=== PATIENT | female | born 2000 | race Two or more races ===

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

== ENCOUNTER → 2022-04-26 10:03 | Outpatient (CLI) | payer OTHER | END | disposition home or self-care (01) | LOC: LAB 10:03 | PROVIDERS: ATTEND Pediatrics | DX: E55.9 Vitamin D deficiency, unspecified (principal); D64.9 Anemia, unspecified; E03.9 Hypothyroidism, unspecified ==

== ENCOUNTER 2024-11-16 11:16 | Outpatient (CLI) | payer OTHER ==
[2024-11-16 12:44] LABS: URINE APPEARANCE Clear; URINE BILIRRUBIN Negative (NEGATIVE); URINE BLOOD Negative; URINE COLOR Yellow; URINE GLUCOSE Negative (NEGATIVE); URINE KETONE Negative (NEGATIVE); URINE LEUKOCYTE Negative; URINE NITRATE Negative; URINE PROTEIN Negative (NEGATIVE); URINE UROBILINOGEN 0.2 E.U./dl
[2024-11-16 12:48] LABS: URINE BACTERIA 5375.7 uL (0.0-1933); URINE EPITHELIAL CELLS 21.2 uL (0.0-38.8); URINE RBC 25.3 uL (0.0-20.8); URINE WBC 73.2 uL (0.0-23.2)
[2024-11-16 12:48] LABS: BASO % 0.7 % (0.1-1.2); EOS # 0.03 (0.04-0.54); EOS % 0.5 % (0.7-7.0); LYMPH # 2.15 (1.18-3.74); LYMPH % 38.8 % (19.3-53.1); MEAN PLATELET VOLUME 10.00 fl (9.4-12.4); MONO # 0.52 (0.24-0.82); MONO % 9.4 % (4.7-12.5); NEUT # 2.79 (1.56-6.13); NEUT % 50.4 % (34.0-71.1); RED CELL DISTRIBUTION WIDTH 11.9 % (11.6-14.4)
[2024-11-16 13:26] LABS: ALT/SGPT 29.0 U/L (12-78); AST/SGOT 13.0 U/L (15-37); BILIRUBIN TOTAL 0.45 mg/dL (0.3-1.2); BUN CREA RATIO 16.0 (7.0-25.0); CHOL HDL RATIO 3.1 (0-5.0); CREATININE SERUM 0.9 mg/dL (0.55-1.02); GFR 78.29; GLOBULINA 3.9 G/DL (2.4-3.5); GLUCOSE FASTING 74.0 mg/dL (65-100); HDL 50.0 mg/dl (40-60); LDL 94.0 mg/dl (0-130); OSMOLALITY SERUM 279.0 MOSM/KG (275-295); T4 FREE 1.06 NG/ML (0.76-1.46); TSH 1.69 uIU/mL (0.358-3.74); VLDL 10.0 (0-39)
[2024-11-16 13:52] LABS: URINE CAST 0.87 uL (0.0-1.40)
== END 2024-11-16 11:21 | disposition home or self-care (01) ==
LOC: LAB 11:16
PROVIDERS: ATTEND Internal Medicine
DX: E11.65 Type 2 diabetes mellitus with hyperglycemia (principal); E03.8 Other specified hypothyroidism; I10 Essential (primary) hypertension; E55.9 Vitamin D deficiency, unspecified; E78.5 Hyperlipidemia, unspecified

== ENCOUNTER 2024-11-16 11:56 | Outpatient (CLI) | payer OTHER | END 2024-11-16 11:58 | disposition home or self-care (01) | LOC: SONOGRAMA 11:56 | PROVIDERS: ATTEND Internal Medicine | DX: E04.2 Nontoxic multinodular goiter (principal) ==